=== PATIENT | female | born 1950 | race Caucasian/White ===

== ENCOUNTER 2020-07-10 17:27 | Emergency (ER) | payer MEDICARE, OTHER, SELFPAY ==
--- NOTE | ~2020-07-10 | XR_ITS ---
EXAMINATION: XR knee LT 3V DATE: 07/10/2020 19:16 INDICATION: Left knee pain TECHNIQUE: Three views of the left knee were obtained. COMPARISON: None. FINDINGS: Alignment is normal. No fracture or osteochondral lesion. There is advanced joint space baldev rowing in the medial compartment and moderate joint space narrowing in the lateral and patellofemoral compartments. No joint effusion/synovitis. Calcified atherosclerosis is noted. IMPRESSION: 1. 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 Reviewed, dictated and finalized at location A.
--- NOTE | ~2020-07-10 | CT_ITS ---
EXAMINATION: CT brain wo con INDICATION: Head injury, history of breast cancer COMPARISON: None TECHNIQUE: Standard unenhanced head CT. The dose-length product (DLP) was 605.33 mGy-cm. The mA was a djusted according to patient size. Iterative reconstruction technique was employed. FINDINGS: There is no intracranial hemorrhage or evidence of infarction. There is a 4.3 cm mass in th e right frontal lobe with surrounding vasogenic edema. Edema results in mass effect on the anterior h orn of the left lateral ventricle and causes 10 mm of [id number] midline shift. There is soft tiss ue swelling of the left fore head. The basal cisterns are patent. Changes in the globes are likely fr om ocular lens surgery. The paranasal sinuses, mastoids and calvarium are normal. IMPRESSION: 1. Right frontal lobe mass with surrounding vasogenic edema and 10 mm of [id number] midline shift concerning for metastatic disease given patient's history of breast cancer. These findings were discussed with Dr. Nicho Groves MD in the Emergency Department at 1759 hour s on 07/10/2020. Reviewed, dictated and finalized at location A. IMPRESSION: 1. Right frontal lobe mass with surrounding vasogenic edema and 10 mm of right- to-left midline shift concerning for metastatic disease given patient's history of breast cancer. These findings were discussed with Dr. Nicho Groves MD in the Emergency D epartment at 1759 hours on 07/10/2020.
--- NOTE | ~2020-07-10 | CT_ITS ---
EXAMINATION: CT cervical spine wo con DATE: 07/10/2020 17:48 INDICATION: Head injury, neck pain TECHNIQUE: Computed tomography (CT) of the cervical spine was performed without intravenous contrast. The dose-length product (DLP) was 389.75 mGy-cm. Automated exposure control and iterative reconstruc tion technique were employed. COMPARISON: None FINDINGS: There are 2 mm of anterolisthesis of C3 on C4 and C4 on C5. The vertebral body heights are maintained. There is severe loss of intervertebral disc space height at C6-7 and moderate loss of int ervertebral disc space height at C5-6. The odontoid is intact. There is advanced facet and uncoverteb ral joint osteoarthritis throughout the cervical spine. Degenerative osteophytes project from the ant erior endplates of multiple vertebral bodies. There is a 2.5 x 2.36 left anterior cervical triangle l ymph node. IMPRESSION: 1. Severe cervical spondylosis without acute findings. 2. Enlarged left cervical lymph node concerning for metastatic disease. Reviewed, dictated and finalized at location A.
--- NOTE | ~2020-07-10 | XR_ITS ---
EXAMINATION: XR knee RT 3V DATE: 07/10/2020 19:16 INDICATION: Right knee pain TECHNIQUE: Three views of the right knee were obtained. COMPARISON: None. FINDINGS: Alignment is normal. No fracture or osteochondral lesion. There is moderate osteoarthritis of the medial compartment and mild osteoarthritis of the lateral and patellofemoral compartments. No joint effusion/synovitis. Soft tissues are unremarkable. IMPRESSION: 1. 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 Reviewed, dictated and finalized at location A.
[2020-07-10 18:00] VITALS: BP 146/80; PULSE 88; RESP 17; TEMP 36.8; O2SAT 98
--- NOTE | 2020-07-10 18:41 | ED.GENADULT ---
HPI - General Adult General Chief complaint: Head Injury Stated complaint: multiple falls/head injury Time Seen by Provider: 07/10/20 18:21 History of Present Illness HPI narrative: Patient is a 61-year-old female with distant history of breast cancer who comes the emergency room today complaining of frequent falls. Patient reports that she has fallen about 4 times today. She says that she will just lose her balance and fall to the ground. She did hit her head with 1 of these falls and has a hematoma to the frontal area of her head. No loss of consciousness, she is not had any vomiting and she is not on blood thinners. She says that she has been having balance issues with falling for about 2 weeks now. She has some mild pain in her knees from these falls and her right hand. Related Data Home Medications Medication Instructions Recorded Confirmed metformin mg 07/10/20 Allergies Allergy/AdvReac Type Severity Reaction Status Date / Time No Known Drug Allergies Allergy Verified 07/10/20 18:40 Review of Systems Constitutional: Constitutional: Reports as per HPI, Denies fever(s), Denies night sweats and Denies weakness Cardiovascular: Cardiovascular: Denies chest pain, Denies edema, Denies leg edema, Denies dyspnea and Denies orthopnea Respiratory: Respiratory: Denies cough and Denies dyspnea Gastrointestinal: Gastrointestinal: Denies abdominal pain, Denies constipation, Denies diarrhea, Denies nausea and Denies vomiting Musculoskeletal: Musculoskeletal: Denies abnormal gait, Denies back pain, Denies numbness and Denies tingling Neurologic: Denies Abnormal speech present, Denies abnormal gait, Denies numbness, Denies tingling and Denies weakness Comments: See HPI for frequent falls Psychiatric: Psychiatric: Denies homicidal ideation and Denies suicidal ideation [facility] Past Medical History Medical History Essential hypertension H/O benign breast biopsy Hereditary and idiopathic peripheral neuropathy Hyperlipemia Nicotine dependence Family History Family History Mother Hypertension Family history of type 2 diabetes mellitus Father Cerebrovascular accident Patient's father is Sibling Family history of malignant neoplasm Patient's brother is Social History Social History Smoking status: Former smoker (Pt states that she quit in August 2018.) Second hand tobacco smoke exposure: No Smoking end date: 08/31/18 Alcohol intake: current Gender identity (if verbalized by the patient): Female Exam Const: General: cooperative, healthy appearing, comfortable, no acute distress, well developed, alert, awake and Physically active Orientation/consciousness: patient oriented x3 HENMT: Ears: external ears normal General nose exam: Normal external nose present Other: Left frontal aspect of head is a 5 cm in diameter area of edema with overlying superficial abrasions Negative roca sign. Negative raccoon eyes. No hemotympanum. Eyes: Pupils: Equal, round and reactive pupils present EOM: EOMs intact bilaterally Neck: Neck: normal visual inspection Other: No cervical spinous process tenderness. Chest: Chest palpation & inspection: normal inspection of the chest and no tenderness Resp: Effort & Inspection: normal respiratory effort and able to speak in complete sentences Auscultation: clear to auscultation bilaterally Cardio: Rate: regular rate Rhythm: regular rhythm GI: Inspection: normal to inspection GI Palp: No abdominal tenderness : General: Yes no CVA tenderness Back/Spine/Pelvis: Back: no CVA tenderness Skin: General skin exam: normal color and no rashes or lesions noted Lesions: no lesions Other: A few superficial abrasions and a few areas of ecchymosis over anterior aspect of
[2020-07-10 18:57] LABS: Basophils Percent Auto 0.3 % (0.2-1.2); Eosinophils Absolute Auto 0.1 K/mm3 (0-0.3); Eosinophils Percent Auto 0.7 % (0-4.4); Hematocrit 37.8 % (37.0-47.0); Hemoglobin 12.6 g/dL (12.0-15.0); Immature Granulocyte Absolute 0.02 K/mm3 (0.00-0.031); Immature Granulocyte Percent A 0.2 % (0-0.5); Lymphocytes Absolute Auto 1.97 K/mm3 (0.9-3.2); Lymphocytes Percent Auto 18.8 % (18.3-44.2); Mean Corpuscular HGB Conc 33.3 g/dl (32-36); Mean Corpuscular Hemoglobin 30.2 pg (26-34); Mean Corpuscular Volume 90.6 fl (80-100); Mean Platelet Volume 10.5 fl (7.4-10.4); Monocytes Absolute Auto 0.6 K/mm3 (0.1-0.6); Monocytes Percent Auto 5.4 % (2.6-8.5); Neutrophils Absolute Auto 7.8 K/mm3 (1.3-6.7); Neutrophils Percent Auto 74.6 % (45.5-73.1); Platelet Count Result 208 k/mm3 (150-375); Red Blood Count 4.17 M/mm3 (4.2-5.4); Red Cell Distribution Width 13.4 % (11.5-14.5); White Blood Count 10.5 K/mm3 (4.5-10.0)
[2020-07-10] MEDS: ACETAMINOPHEN 500 MG TABLET 1000 MG PO (18:57)
[2020-07-10 18:58] VITALS: BP 150/64; PULSE 93; RESP 16; TEMP 36.6; O2SAT 98
--- NOTE | 2020-07-10 19:04 | PC.NURSE ---
Spoke with [facility] access line for placement, waiting for room number. [facility] is requesting patient be covid swabbed and CD to be sent with.
[2020-07-10 19:10] VITALS: BP 133/82; PULSE 88; RESP 18; O2SAT 97
[2020-07-10 19:11] LABS: Alanine Aminotransferase 90 U/L (4-35); Albumin Level 4.2 g/dL (3.5-5.1); Alkaline Phosphatase 117 U/L (38-126); Anion Gap 7 mmol/L (8-16); Aspartate Amino Transferase 78 U/L (14-36); Bilirubin,Total 0.6 mg/dL (0.2-1.3); Blood Urea Nitrogen 13 mg/dL (7-17); Carbon Dioxide 27 mmol/L (22-30); Chloride 105 mmol/L (98-107); Estimated CRCL calculation 80 ml/min; Estimated Glomerular Filt Rate > 60; Glucose 126 mg/dL (65-105); Potassium 3.8 mmol/L (3.4-5.0); Sodium 139 mmol/L (137-145)
[2020-07-10 20:00] VITALS: BP 150/64
[2020-07-10 21:20] VITALS: BP 136/71; PULSE 89; RESP 18
--- NOTE | 2020-07-10 22:26 | PC.NURSE ---
Called [facility] to check on bed. Per Neida jacobo [facility], no bed has been assigned yet.
[2020-07-10 22:47] VITALS: BP 150/71; PULSE 92; RESP 18
[2020-07-10] MEDS: levETIRAcetam 500 MG TABLET PO (23:10)
--- NOTE | 2020-07-10 23:35 | PC.NURSE ---
called [facility] to request transport. ETA midnight
--- NOTE | 2020-07-10 23:44 | PC.NURSE ---
2330: Report called to [facility]. Pt going to room [address]. Report called to Demetris PAUL.
[2020-07-11 00:15] VITALS: BP 151/70; PULSE 78; RESP 18; O2SAT 96
[2020-07-12 19:43] LABS: SARS-CoV-2 RNA PCR Negative
== END 2020-07-11 00:15 | disposition short-term general hospital (02) ==
PROVIDERS: Physician Assistant Medical; Emergency Provider Emergency Medicine; PCP Internal Medicine
DX: G93.9 Disorder of brain, unspecified (principal); R29.6 Repeated falls; I10 Essential (primary) hypertension; E78.5 Hyperlipidemia, unspecified; G60.9 Hereditary and idiopathic neuropathy, unspecified; Z87.891 Personal history of nicotine dependence; Z85.3 Personal history of malignant neoplasm of breast; Z20.822 Contact with and (suspected) exposure to COVID-19; M17.0 Bilateral primary osteoarthritis of knee
CPT/HCPCS: 36415; 70450; 72125; 73562; 80053; 85025; 96374; 99285; A9270; C9803; J1100; U0003; U0005

== ENCOUNTER 2021-12-29 09:30 | Outpatient (CLI) | payer MEDICARE, OTHER, SELFPAY ==
[2021-12-29 20:11] LABS: Potassium 3.3 mmol/L (3.4-5.0)
[2021-12-29 20:20] LABS: Alanine Aminotransferase 28 U/L (6-35); Albumin Level 4.4 g/dL (3.5-5.1); Alkaline Phosphatase 95 U/L (38-126); Anion Gap 13 mmol/L (8-16); Aspartate Amino Transferase 47 U/L (14-36); Bilirubin,Total 0.5 mg/dL (0.2-1.3); Blood Urea Nitrogen 16 mg/dL (7-17); Calcium 9.6 mg/dL (8.4-10.2); Carbon Dioxide 27 mmol/L (22-30); Chloride 100 mmol/L (98-107); Cholesterol 299 mg/dL (0-200); Estimated Glomerular Filt Rate > 60; Glucose 123 mg/dL (65-110); HDL Direct 44 mg/dL; Sodium 140 mmol/L (137-145); Triglycerides 158 mg/dL (<150)
[2021-12-29 20:23] LABS: LDL Cholesterol Direct 187 mg/dL
[2021-12-29 20:30] LABS: Hemoglobin A1C 5.9 % (<5.7)
== END 2021-12-29 09:31 | disposition home or self-care (01) ==
LOC: ANHGOSHLAB 09:32
PROVIDERS: PCP Family Medicine; Visit Provider Family Medicine
DX: E78.5 Hyperlipidemia, unspecified (principal); E11.9 Type 2 diabetes mellitus without complications; I10 Essential (primary) hypertension
CPT/HCPCS: 36415; 80053; 80061; 83036